=== PATIENT | female | born 1960 | race Caucasian/White ===

== ENCOUNTER → 2019-10-07 13:12 | Outpatient (CLI) | payer MEDICARE, SELFPAY ==
--- NOTE | 2019-10-07 13:18 | US_ITS ---
PROCEDURE: US FNA THYROID CLINICAL INDICATION: LT THYROID NODULE Dominant left thyroid nodule COMPARISON: Thyroid from 09/15/2019 TECHNIQUE: Following obtaining informed consent, using aseptic technique and local anesthesia with buffered lidocaine, fine-needle aspiration was performed of the nodule of interest using sonographic guidance. 3 passes were made into the nodule with a 21-gauge needle. Specimen was given to cytology. FINDINGS: CYTOLOGY: Negative for malignant cells IMPRESSION: Uneventful ultrasound-guided fine needle aspiration left thyroid nodule which was negative for malignant cells. The patient tolerated the procedure well without evidence of immediate complications and left the ultrasound suite in stable condition. Dictated by: Mario Alberto Valdez MD 10/23/2019 07:56 Electronically signed by Mario Alberto Valdez MD in [place] 10/23/2019 07:56
== END ==
PROVIDERS: PCP Nurse Practitioner Family; Visit Provider Otolaryngology
DX: D34 Benign neoplasm of thyroid gland (principal)
CPT/HCPCS: 10005; 76942; 88173; 88305